=== PATIENT | female | born 1945 | race Caucasian/White ===

== ENCOUNTER 2017-10-16 10:57 | Outpatient (CLI) | payer OTHER ==
[~2017-10-16 10:57] MED LIST: ZANTAC150 M3 PO
== END 2017-10-16 11:00 | disposition home or self-care (01) ==
LOC: NUCLEAR 10:57
DX: M81.0 Age-related osteoporosis without current pathological fracture (principal); M85.89 Other specified disorders of bone density and structure, multiple sites